=== PATIENT | female | born 1990 | race American Indian/Alaskan Native ===

== ENCOUNTER 2018-06-19 12:33 | Emergency (ER) | payer MEDICAID ==
--- NOTE | 2018-06-19 12:46 | Emergency Department Report ---
Blank Doc - Documentation Documentation: This is a 28-year-old female that presents with pelvic cramping. Patient is a bout 18 weeks . Has OBGYN follow-up with previous ultrasound. Stated has some vaginal spotting. This initial assessment/diagnostic orders/clinical plan/treatment(s) is/are subject to change based on patient's health status, clinical progression and re- assessment by fellow clinical providers in the ED. Further treatment and workup at subsequent clinical providers discretion. Patient/guardians urged not to elope from the ED as their condition may be serious if not clinically assessed and managed. Initial orders include: 1- Patient sent to [facility] for further evaluation and treatment 2- labs 3- UA
[2018-06-19 13:30] LABS: Bacteria,Urine 1+ /HPF (Negative); Bilirubin,Urine NEG (Negative); Blood,Urine NEG (Negative); Color,Urine Yellow (Yellow); Mucus,Urine FEW /HPF; Protein,Urine <15 mg/dL mg/dL (Negative)
[2018-06-19 13:40] LABS: Basophils % (Auto) 0.2 % (0.0-1.8); Eosinophils # (Auto) 0.2 K/mm3 (0.0-0.4); Eosinophils % (Auto) 1.8 % (0.0-4.3); Hematocrit 31.3 % (30.3-42.9); Hemoglobin 10.3 gm/dl (10.1-14.3); Lymphocytes # (Auto) 1.7 K/mm3 (1.2-5.4); Lymphocytes % (Auto) 19.3 % (13.4-35.0); Mean Corpuscular HGB Conc 33 % (30-34); Mean Corpuscular Volume 79 fl (79-97); Monocytes # (Auto) 0.9 K/mm3 (0.0-0.8); Monocytes % (Auto) 10.4 % (0.0-7.3); Platelet Count 262 K/mm3 (140-440); Red Blood Count 3.94 M/mm3 (3.65-5.03); Red Cell Distribution Width 14.2 % (13.2-15.2)
--- NOTE | 2018-06-19 15:25 | Ultrasound Report ---
OB ULTRASOUND History: pelvic pain with vaginal bleeding. Technique: Transabdominal ultrasound with Doppler interrogation. Gestation: Single Position: Cephalic Amniotic Fluid: Within normal limits Placenta: Anterior, right lateral Placental Grade: 0 Heart Rate: 149 BPM Cervical length: 4.2 cm (Normal > 3 cm) BPD: 4.2 cm = 18 w 6 d HC: 15.7 cm = 18 w 4 d AC: 13.6 cm = 19 w 0 d FL: 2.8 cm = 18 w 5 d HC/AC Ratio: 1.16 Cephalic Index: 80.6 Estimated Weight: 261 grams Clinical age = 18 w 2 d EDC: 11/18/18 US Gest. Age = 18 w 6 d EDC: 11/14/18 IMPRESSION: Viable, single intrauterine as described. No acute abnormality is detected.
[2018-06-19 16:26] VITALS: BP 103/52
--- NOTE | 2018-06-19 16:28 | Emergency Department Report ---
ED Female HPI - General Chief complaint: Abdominal Pain Stated complaint: 18WKS /PELVIC PAIN/DISCHARGE Time Seen by Provider: 06/19/18 12:40 Source: patient Mode of arrival: Ambulatory Limitations: No Limitations - History of Present Illness Initial comments: This is a 28-year-old female who presents to ED complaining of lower abdominal cramping with vaginal spotting. Patient states she is approximately 18 weeks and has care. Patient states that she has a follow-up appointment with HOSPITAL COORDINATOR coming up next week. Patient says she E to the ER to be evaluated. She denies fever/nausea vomiting/ MD Complaint: vaginal bleeding - Related Data Home Medications Medication Instructions Recorded Confirmed Last Taken Vit #105/Iron/FA/Dha 1 tab PO DAILY 05/31/15 06/28/15 06/28/15 05:00 Allergies Allergy/AdvReac Type Severity Reaction Status Date / Time No Known Allergies Allergy Verified 05/31/15 23:14 ED Review of Systems ROS: Stated complaint: 18WKS /PELVIC PAIN/DISCHARGE Other details as noted in HPI Comment: All other systems reviewed and negative ED Past Medical Hx - Past Medical History Previous Medical History?: Yes Hx Hypertension: No Hx Congestive Heart Failure: No Hx Diabetes: No Hx Deep Vein Thrombosis: No Hx Renal Disease: No Hx Sickle Cell Disease: No Hx Seizures: No Hx Asthma: No Hx COPD: No Hx HIV: No - Surgical History Past Surgical History?: No - Social History Smoking Status: Never Smoker Substance Use Type: None - Medications Home Medications: Home Medications Medication Instructions Recorded Confirmed Last Taken Type Vit #105/Iron/FA/Dha 1 tab PO DAILY 05/31/15 06/28/15 06/28/15 05:00 History ED Physical Exam - General Limitations: No Limitations General appearance: alert, in no apparent distress - Head Head exam: Present: atraumatic, normocephalic - Eye Eye exam: Present: normal appearance - ENT ENT exam: Present: mucous membranes moist - Neck Neck exam: Present: normal inspection - Respiratory Respiratory exam: Present: normal lung sounds bilaterally. Absent: respiratory distress - Cardiovascular Cardiovascular Exam: Present: regular rate, normal rhythm. Absent: systolic murmur, diastolic murmur, rubs, gallop - GI/Abdominal GI/Abdominal exam: Present: soft, normal bowel sounds - Extremities Exam Extremities exam: Present: normal inspection - Back Exam Back exam: Present: normal inspection - Neurological Exam Neurological exam: Present: alert, oriented X3 - Psychiatric Psychiatric exam: Present: normal affect, normal mood - Skin Skin exam: Present: warm, dry, intact, normal color. Absent: rash ED Course Vital Signs 06/19/18 06/19/18 12:44 16:25 Temperature 97.4 F L 98.3 F Pulse Rate 74 71 Respiratory 16 16 Rate Blood Pressure 109/37 Blood Pressure 103/52 [Right] O2 Sat by Pulse 99 100 Oximetry ED Medical Decision Making - Lab Data Result diagrams: 06/19/18 13:19 - Radiology Data Radiology results: report reviewed, image reviewed Gestation: Single Position: Cephalic Amniotic Fluid: Within normal limits Placenta: Anterior, right lateral Placental Grade: 0 Heart Rate: 149 BPM Cervical length: 4.2 cm (Normal > 3 cm) BPD: 4.2 cm = 18 w 6 d HC: 15.7 cm = 18 w 4 d AC: 13.6 cm = 19 w 0 d FL: 2.8 cm = 18 w 5 d HC/AC Ratio: 1.16 Cephalic Index: 80.6 Estimated Weight: 261 grams Clinical age = 18 w 2 d EDC: 11/18/18 US Gest. Age = 18 w 6 d EDC: 11/14/18 IMPRESSION: Viable, single intrauterine as described. No acute abnormality is detected. Transcribed By: TTR Dictated By: ERICK LÓPEZ JR, MD Electronically Authenticated By: ERICK LÓPEZ JR, MD Signed Date/Time: 06/19/18 1521 - Medical Decision Making 28-year-old female presents to ED with vaginal spotting in ED course: Pt received ultra sound, CBC, urinalysis, test and q uantitative ED All labs within normal limits, quantitative elevated matching gestation age Patient is followed by an HOSPITAL COORDINATOR and has an appointment Ultrasound shows single intrauterine at 18 weeks 6 days. heart rate of 1 49 bpm. See reported above Vital signs normalized patient is in no acute distress. I discussed with the patient if follow-up with her HOSPITAL COORDINATOR. I discussed all labs and ultrasound findings with the patient. I discussed with the patient that he if bleeding worsens or new symptoms develop to return to ED immediately Critical care attestation.: If time is entered above; I have spent that time in minutes in the direct care of this critically ill patient, excluding procedure time. ED Disposition Clinical Impression: Vaginal bleeding during Disposition: DC- TO HOME OR SELFCARE Is pt being admited?: No Does the pt Need Aspirin: No Condition: Stable Instructions: Threatened Miscarriage (ED), (ED), Abdominal Pain (ED) Additional Instructions: Make sure to follow up with the HOSPITAL COORDINATOR as discussed. Tylenol as needed for pain If you have any worsening symptoms or develop new symptoms please return to ED immediately. [facility] L[facility] [Primary Care Provider] - 3-5 Days Forms: Work/School Release Form(ED) Time of Disposition: 16:29
== END 2018-06-19 16:32 | disposition home or self-care (01) ==
LOC: ED 12:33
DX: O46.92 Antepartum hemorrhage, unspecified, second trimester (principal); Z3A.18 18 weeks gestation of pregnancy
CPT/HCPCS: 36415; 76805; 81001; 84702; 85025; 86850; 86900; 86901

== ENCOUNTER 2020-08-30 17:44 | Emergency (ER) | payer MEDICAID ==
[2020-08-30 20:04] VITALS: BP 148/80
[2020-08-30] MEDS ORDERED: diphenhydrAMINE 50 MG/ML VIAL IV STA (21:10)
[2020-08-30] MEDS ORDERED: METOCLOPRAMIDE 10 MG/2 ML INJ IV STA (21:10)
[2020-08-30] MEDS ORDERED: KETOROLAC 30 MG/1 ML INJ IV STA (21:10)
[2020-08-30] MEDS ORDERED: SODIUM CHLORIDE 0.9% 1000 ML 1,000 ML IV ONE (21:10)
[2020-08-30] MEDS ORDERED: dexAMETHasone 4 MG/ML VIAL IM ONE (23:23)
--- NOTE | 2020-08-31 00:05 | Emergency Department Report ---
ED Headache HPI - General Chief Complaint: Headache Stated Complaint: FATIQUE,LOSS OF APPETITE,ANIXETY Time Seen by Provider: 08/30/20 21:09 - History of Present Illness Allergies/Adverse Reactions: Allergies No Known Allergies Allergy (Verified 05/31/15 23:14) Home Medications: Ambulatory Orders Vit #105/Iron/FA/Dha 1 tab PO DAILY 05/31/15 Nitrofurantoin Monohyd/M-Cryst [Macrobid 100 mg Capsule] 100 mg PO BID #10 capsule 06/19/18 Butalb/Acetaminophen/Caffeine [Fioricet 50-300-40 mg CAP] 1 cap PO Q8HR PRN #14 cap 08/30/20 ED Review of Systems ROS: Stated complaint: FATIQUE,LOSS OF APPETITE,ANIXETY Other details as noted in HPI Comment: All other systems reviewed and negative ED Past Medical Hx - Past Medical History Hx Hypertension: No Hx Congestive Heart Failure: No Hx Diabetes: No Hx Deep Vein Thrombosis: No Hx Renal Disease: No Hx Sickle Cell Disease: No Hx Seizures: No Hx Asthma: No Hx COPD: No Hx HIV: No - Surgical History Past Surgical History?: No - Social History Smoking Status: Never Smoker Substance Use Type: None - Medications Home Medications: Home Medications Medication Instructions Recorded Confirmed Last Taken Type Vit #105/Iron/FA/Dha 1 tab PO DAILY 05/31/15 06/28/15 06/28/15 05:00 History Nitrofurantoin Monohyd/M-Cryst 100 mg PO BID #10 capsule 06/19/18 Unknown Rx [Macrobid 100 mg Capsule] Butalb/Acetaminophen/Caffeine 1 cap PO Q8HR PRN #14 cap 08/30/20 Unknown Rx [Fioricet 50-300-40 mg CAP] ED Physical Exam - General Limitations: No Limitations General appearance: alert, in no apparent distress - Head Head exam: Present: atraumatic, normocephalic, normal inspection - Eye Eye exam: Present: normal appearance, PERRL, EOMI. Absent: scleral icterus, conjunctival injection, periorbital swelling Pupils: Present: normal accommodation - ENT ENT exam: Present: normal exam, normal orophraynx, mucous membranes moist - Neck Neck exam: Present: normal inspection, full ROM - Respiratory Respiratory exam: Present: normal lung sounds bilaterally. Absent: respiratory distress, rales, decreased breath sounds - Cardiovascular Cardiovascular Exam: Present: regular rate, normal rhythm. Absent: bradycardia, systolic murmur, diastolic murmur, rubs, gallop - GI/Abdominal GI/Abdominal exam: Present: soft, normal bowel sounds - Extremities Exam Extremities exam: Present: normal inspection, full ROM, normal capillary refill - Back Exam Back exam: Present: normal inspection. Absent: CVA tenderness (R), CVA tenderness (L), muscle spasm, paraspinal tenderness - Neurological Exam Neurological exam: Present: alert, oriented X3, CN II-XII intact, normal gait. Absent: motor sensory deficit - Expanded Neurological Exam Expanded Patient oriented to: Present: person, place, time Speech: Present: fluid speech Cranial nerves: EOM's Intact: Normal, Nystagmus: Normal Motor strength exam: RLE: 5, LLE: 5 Best Eye Response ([place]): (4) open spontaneously Best Motor Response ([place]): (6) obeys commands Best Verbal Response ([place]): (5) oriented [place] Total: 15 - Psychiatric Psychiatric exam: Present: normal affect, normal mood. Absent: anxious, flat affect, manic, homicidal ideation, suicidal ideation - Skin Skin exam: Present: warm, dry, intact, normal color. Absent: rash ED Course Vital Signs 08/30/20 19:49 Temperature 98.6 F Pulse Rate 74 Respiratory 18 Rate Blood Pressure 148/80 O2 Sat by Pulse 100 Oximetry ED Medical Decision Making - Medical Decision Making This patient presents with a headache most consistent with nonemergent headache. Differential diagnosis includes migraine versus tension type headache. No headache red flags. Neurologic exam without evidence of meningismus, focal neurologic findings.Based on the patient's history and physical there is very low clinical suspicion for significant intracranial pathology. The headache was NOT sudden onset, NOT maximal at onset, there are NO neurologic findings, the patient does NOT have a fever, the patient does NOT have any jaw claudication, the patient does NOT endorse a clotting disorder, patient DENIES any trauma or eye pain and the headache is NOT associated with dizziness or ataxia. Presentation not consistent with acute intracranial bleed to include SAH (lack of risk factors, headache history). Presentation not consistent with acute LEAD COATER infection to include meningitis or brain abscess, Temporal arteritis unlikely, as is acute angle closure glaucoma given history and physical findings. Presentation not consistent with other acute, emergent causes of headache at t his time. Plan to treat symptomatically with pain medication. No indication for imaging/LP at this time. CT scan was deferred as this was not a new headache character or etiology., The patient was not over the age of 50, no sudden onset, patient not immunocompromise, no trauma, headache does not worsen with the Valsalva maneuver, no signs of systemic illness, not the worst headache ever, no co ncerning findings on neurological examination. Also no progression in frequency and intensity/severity of headaches. Plan: pain medication, , serial reassessment Critical care attestation.: If time is entered above; I have spent that time in minutes in the direct care of this critically ill patient, excluding procedure time. ED Disposition Clinical Impression: Cephalgia Disposition: DC-01 TO HOME OR SELFCARE Is pt being admited?: No Does the pt Need Aspirin: No Condition: Stable Instructions: General Headache Without Cause, Form - Headache Record, Migraine Headache Prescriptions: Butalb/Acetaminophen/Caffeine [Fioricet 50-300-40 mg CAP] 1 cap PO Q8HR PRN #14 cap PRN Reason: Headache Referrals: [facility] [Provider Group] - 3-5 Days PRIMARY CARE,MD [Primary Care Provider] - 3-5 Days
== END 2020-08-31 01:20 | disposition home or self-care (01) ==
LOC: ED 17:44
DX: R51.9 Headache, unspecified (principal); R53.83 Other fatigue; F41.9 Anxiety disorder, unspecified; Z79.899 Other long term (current) drug therapy
CPT/HCPCS: 96361; 96372; 96374; 96375; 99282; J1100; J1200; J1885; J2765; J7030